=== PATIENT | female | born 1975 | race Two or more races ===

== ENCOUNTER 2022-12-14 01:18 | Emergency (ER) | payer OTHER ==
[2022-12-14 01:42] VITALS: BP 131/85; PULSE 63; RESP 20; TEMP 97.1; BMI 28.3
[2022-12-14] MEDS ORDERED: ACETAMINOPHEN 325 MG TABLET (FP) PO ONE (01:46)
[2022-12-14] MEDS ORDERED: ACETAMINOPHEN 325 MG TABLET (FP) ONE (01:55)
[2022-12-14] MEDS ORDERED: morphine CARPU-JECT 4 MG/1 ML DISP.SYRIN IVPUSH ONE (05:16)
[2022-12-14] MEDS ORDERED: ONDANSETRON 4 MG/2 ML VIAL IVPUSH ONE (05:16)
[2022-12-14] MEDS ORDERED: ONDANSETRON 4 MG/2 ML VIAL ONE (05:27)
[2022-12-14] MEDS ORDERED: morphine SULFATE 4 MG/ML VIAL ONE (05:27)
[2022-12-14 05:38] LABS: INR 1.03 (0.83-1.09); PROTHROMBIN TIME (PATIENT) 11.9 SEC (9.7-13.0)
[2022-12-14 05:41] LABS: ACTIVATED PTT 31.5 SECONDS (25.2-36.5)
[2022-12-14 05:59] LABS: ALBUMIN 3.2 g/dl (3.4-5.0); CALCIUM 8.6 mg/dL (8.5-10.1)
[2022-12-14 06:03] LABS: CREATININE 0.4 mg/dL (0.55-1.3)
[2022-12-14 06:04] LABS: TOT PROT 6.5 g/dl (6.4-8.2)
[2022-12-14 06:05] LABS: BILIRUBIN,TOTAL 0.6 mg/dL (0.2-1)
[2022-12-14 06:35] LABS: BASO % 0.5 % (0-2.0); EOS % 7.2 % (0-4.5); HEMATOCRIT 32.8 % (32.4-45.2); HEMOGLOBIN 10.8 GM/dL (10.7-15.3); LYMPH % 25.7 % (8-40); MCH 27.9 pg (25.7-33.7); MEAN CELL VOLUME 84.5 fl (80-96); MEAN PLT VOLUME 7.6 fl (7.5-11.1); MONO % 7.3 % (3.8-10.2); NEUT % 59.3 % (42.8-82.8); PLATELET COUNT 491 10^3/uL (134-434); RBC 3.88 M/mm3 (3.60-5.2); RDW 13.8 % (11.6-15.6); WHITE BLOOD COUNT 5.8 K/mm3 (4.0-10.0)
== END 2022-12-14 06:00 | disposition short-term general hospital (02) ==
LOC: JER 01:18
PROC: 3E033GC Introduction of Other Therapeutic Substance into Peripheral Vein, Percutaneous Approach (ICD-10-PCS; principal; 2022-12-14)
PROC: 3E033GC Introduction of Other Therapeutic Substance into Peripheral Vein, Percutaneous Approach (ICD-10-PCS; 2022-12-14)
DX: S22.41XA Multiple fractures of ribs, right side, initial encounter for closed fracture (principal); J98.11 Atelectasis; V49.50XA Passenger injured in collision with unspecified motor vehicles in traffic accident, initial encounter; Y92.410 Unspecified street and highway as the place of occurrence of the external cause
CPT/HCPCS: 36415; 70450-TC; 71250-TC; 72125-TC; 72128-TC; 72131-TC; 74176-TC; 80053; 84703; 85025; 85610; 85730; 87635; 99285-25